=== PATIENT | male | born 1940 | race Caucasian/White ===

== ENCOUNTER 2023-02-26 12:37 | Outpatient (CLI) | payer MEDICARE, OTHER ==
--- NOTE | 2023-02-26 13:48 | XRAY Report ---
PROCEDURE: Hip w/Pelvis 2-3V LT INDICATIONS: PAIN IN LEFT HIP TECHNIQUE: AP pelvis with lateral view(s) of the left hip(s). COMPARISON: None. FINDINGS: Bones: No fractures or dislocations. No suspicious bony lesions. Severe left and moderate to maribell re right hip degenerative narrowing. Subchondral sclerosis and periarticular osteophytes are most not able on the left. Degenerative changes are present within the lower lumbar spine Soft tissues: No suspicious soft tissue calcifications or masses. IMPRESSION: Bilateral hip arthritis, left greater than right. Reviewed by: Luzma Scott MD on 02/26/2023 1:46 PM PDT Approved by: Luzma Scott MD on 02/26/2023 1:46 PM PDT Station ID: [id number]
== END 2023-02-26 12:38 | disposition home or self-care (01) ==
LOC: DI.S 12:37
PROVIDERS: ATTEND Nurse Practitioner Family
DX: M16.0 Bilateral primary osteoarthritis of hip (principal)

== ENCOUNTER 2024-02-10 11:25 | Emergency (ER) | payer MEDICARE ==
--- NOTE | 2024-02-10 11:46 | ED Physician Documentation ---
PD HPI MAJOR TRAUMA - Stated complaint Stated Complaint: GLF,RT SHOULDER INJ - Chief complaint Chief Complaint: Trauma Ext - History obtained from History obtained from: Patient - Additional information Additional information: 83-year-old gentleman fell off his pontoon boat while getting it ready today and landed directly on the right shoulder. He has moderate pain there that actually is only there if he moves it. No other injuries. He thinks he may have had a mild head strike but no headache and no anticoagulation. No loss of consciousness. PD PAST MEDICAL HISTORY - Past Medical History Past Medical History: Yes Cardiovascular: Hypertension Respiratory: None Neuro: None Endocrine/Autoimmune: None GI: GERD : None HEENT: Chronic vision loss Psych: None Musculoskeletal: Osteoarthritis Derm: None - Past Surgical History Past Surgical History: Yes Ortho: Hip replacement - Present Medications Home Medications: Ambulatory Orders Medication Instructions Recorded Confirmed Atorvastatin Calcium [Lipitor] 80 mg PO HS 02/10/24 02/10/24 Losartan [Cozaar] 25 mg PO BID 02/10/24 02/10/24 Metoprolol Succinate [Toprol Xl] 50 mg PO DAILY 02/10/24 02/10/24 Omeprazole 20 mg PO DAILY 02/10/24 02/10/24 Prazosin [Minipress] 1 mg PO BID 02/10/24 02/10/24 Spironolactone [Aldactone] 12.5 mg PO DAILY 02/10/24 02/10/24 - Allergies Allergies/Adverse Reactions: Allergies Allergy/AdvReac Type Severity Reaction Status Date / Time No Known Drug Allergies Allergy Verified 02/10/24 11:30 - Social History Does the pt smoke?: No Smoking Status: Never smoker Does the pt drink ETOH?: Yes ETOH Use: Beer Does the pt have substance abuse?: No - Immunizations Immunizations are current?: Yes - POLST Patient has POLST: No PD ED PE NORMAL - Vitals Vital signs reviewed: Yes - General General: Alert and oriented X 3, No acute distress - HEENT HEENT: PERRL, EOMI - Neck Neck: Supple, no meningeal sign, No bony TTP - Extremities Extremities: Other (No tenderness over the shoulder/glenohumeral joint/upper humerus but he does have a deformity at the distal clavicle consistent with an AC separation. He is able to range it somewhat but limited due to pain.) - Neuro Neuro: Alert and oriented X 3, Normal speech Eye Opening: Spontaneous Motor: Obeys Commands Results - Vitals Vitals: Vital Signs - 24 hr 02/10/24 11:32 Temperature 36.2 C L Heart Rate 53 L Respiratory 16 Rate Blood Pressure 189/55 H O2 Saturation 99 Oxygen O2 Source Room air - Rads (name of study) Right shoulder x-ray officially read as just degenerative change. I do believe he probably has a mild AC separation personally. Relevant Findings:: Final report received, EMP independent interpretation of test PD Medical Decision Making - ED course ED course: Clinically and I think radiography vo he has a mild AC separation. He is placed in a sling. There is no dislocation or fracture. Counseled on cons ervative care and orthopedic follow-up. Departure - Departure Disposition: 01 Home, Self Care Clinical Impression: Separation of right acromioclavicular joint Qualifiers: Encounter type: initial encounter Qualified Code(s): S43.101A - Unspecified dislocation of right acromioclavicular joint, initial encounter Condition: Good Record reviewed to determine appropriate education?: Yes Instructions: ED Sprain AC Joint Follow-Up: Orthopedic Care [Provider Group] Comments: You have a acromioclavicular separation. These generally heal well without specific intervention and which will notices you will have a first few days that will be rough as far as range of motion and then you will probably slowly regain range of motion and fully recover. You can wear the sling as needed for the first few days, after that I like you to come out of the sling at least several times a day to do gentle range of motion exercises is much as you can without significant pain. Plan to follow-up with our orthopedic clinic in a week or 2 to assess healing and make sure things are going well. Call them for an appointment. You can take Tylenol as needed per package instructions for pain. Return for new or worsening symptoms. Your blood pressure today was 189/55. Is not uncommon to have elevated blood pressures when in the emergency department due to pain, but schedule a blood pressure check with your doctor within the next week or so. Forms: PCP List
--- NOTE | 2024-02-10 12:09 | XRAY Report ---
PROCEDURE: Shoulder 2+V RT INDICATIONS: shoulder inj TECHNIQUE: 3 views of the shoulder were acquired. COMPARISON: None. FINDINGS: Bones: Mild acromioclavicular and glenohumeral degenerative changes. No displaced fracture or disloca tions identified. Soft tissues: No suspicious calcifications. IMPRESSION: Mild degenerative changes. No acute radiographic abnormality. If there is high concern for further de rangement, consider MRI evaluation. Reviewed by: Conor Roberts MD on 02/10/2024 12:08 PM PDT Approved by: Conor Roberts MD on 02/10/2024 12:08 PM PDT Station ID: [id number]
[2024-02-10 12:40] VITALS: BP 152/88; O2SAT 98
== END 2024-02-10 12:35 | disposition home or self-care (01) ==
LOC: ED 11:25
DX: S43.101A Unspecified dislocation of right acromioclavicular joint, initial encounter (principal); W17.89XA Other fall from one level to another, initial encounter; I10 Essential (primary) hypertension; K21.9 Gastro-esophageal reflux disease without esophagitis
CPT/HCPCS: 99283

== ENCOUNTER 2024-02-14 08:02 | Outpatient (CLI) | payer MEDICARE ==
--- NOTE | 2024-02-15 06:34 | Ultrasound Report ---
PROCEDURE: Arterial Visceral Complete INDICATIONS: HYPERTENSION TECHNIQUE: Real time scanning was performed of both kidneys, followed by Color and pulsed Doppler in terrogation of the renal vessels. COMPARISON: None FINDINGS: Aortic peak systolic velocity: 101 cm/s. Right side: Victoria-scale imaging: Kidney is 10.5 cm long. No hydronephrosis. No nephrolithiasis. Renal cortex i s normal in echogenicity. No suspicious solid renal masses. Proximal renal artery peak systolic velocity: 100 cm/s. Mid renal artery peak systolic velocity: 72 cm/s. Distal renal artery peak systolic velocity: 84 cm/s. Renal vein: Patent, without thrombus. Peak renal/aortic ratio (RAR): 0.9. Left side: Victoria-scale imaging: Kidney is 11.4 cm long. No hydronephrosis. No nephrolithiasis. Renal cortex i s normal in echogenicity. No suspicious solid renal masses. Proximal renal artery peak systolic velocity: 86 cm/s. Mid-renal artery peak systolic velocity: 55 cm/s. Distal renal artery peak systolic velocity: 162 cm/s. Renal vein: Patent, without thrombus. Peak renal/aortic ratio (RAR): 1.6. IMPRESSION: By velocity criteria and renal aortic ratio, no significant stenosis is seen. Reviewed by: Conor Roberts MD on 02/15/2024 6:33 AM PDT Approved by: Conor Roberts MD on 02/15/2024 6:33 AM PDT Station ID: [id number]
== END 2024-02-14 08:03 | disposition home or self-care (01) ==
LOC: DI 08:02
PROVIDERS: ATTEND Registered Nurse
DX: I10 Essential (primary) hypertension (principal)
CPT/HCPCS: 93975

== ENCOUNTER 2024-02-24 08:49 | Outpatient (CLI) | payer MEDICARE ==
--- NOTE | 2024-02-24 11:45 | XRAY Report ---
PROCEDURE: Shoulder 2+V RT INDICATIONS: PAIN IN RIGHT SHOULDER TECHNIQUE: 4 views of the shoulder were acquired. COMPARISON: X-ray right shoulder 02/10/2024. FINDINGS: Bones: No fractures. There is 1.2 cm superior subluxation of the distal clavicle at AC joint. Mild-t o-oderate acromioclavicular and glenohumeral joint degeneration. No suspicious bony lesions. Visual ized ribs appear intact. Soft tissues: No suspicious soft tissue calcifications. The visualized lungs are within normal limi ts. IMPRESSION: 1. Superior subluxation of the distal clavicle at the acromioclavicular joint suspicious for AC separ ation. Consider weightbearing views of the AC joints clinically indicated. 2. Mild to moderate osteoarthritic changes. Reviewed by: Elizabet Perales MD on 02/24/2024 11:44 AM PDT Approved by: Elizabet Perales MD on 02/24/2024 11:44 AM PDT Station ID: [id number]
== END 2024-02-24 08:50 | disposition home or self-care (01) ==
LOC: DI 08:49
PROVIDERS: ATTEND Orthopaedic Surgery
DX: S43.111A Subluxation of right acromioclavicular joint, initial encounter (principal); M19.011 Primary osteoarthritis, right shoulder

== ENCOUNTER 2024-06-08 08:02 | Outpatient (CLI) | payer MEDICARE ==
--- NOTE | 2024-06-08 09:44 | XRAY Report ---
PROCEDURE: Hip w/Pelvis 2-3V LT INDICATIONS: HISTORY OF LEFT HIP PAIN TECHNIQUE: AP pelvis and 2 views views of the left hip were acquired. COMPARISON: 02/26/2023. FINDINGS: Patient is status post left total hip replacement. Surgical hardware appears in good position without evidence for hardware complication. I see no evidence for acute osseous abnormality. There is moderate osteoarthritic degenerative change involving the patient's right hip. IMPRESSION: 1. No evidence for acute osseous abnormality. 2. Satisfactory appearance of left total hip replacement. 3. Moderate osteoarthritic type degenerative change right hip. Reviewed by: Hernan Cole MD on 06/08/2024 9:42 AM PDT Approved by: Hernan Cole MD on 06/08/2024 9:42 AM PDT Station ID: [id number]
== END 2024-06-08 08:03 | disposition home or self-care (01) ==
LOC: DI 08:02
PROVIDERS: ATTEND Orthopaedic Surgery
DX: Z96.642 Presence of left artificial hip joint (principal); M16.11 Unilateral primary osteoarthritis, right hip